=== PATIENT | female | born 2000 | race Hispanic/Latino ===

== ENCOUNTER 2019-04-02 16:07 | Inpatient (IN) | payer BC ==
[~2019-04-02 16:07] MED LIST: Bupivacaine/Epinephrine 0.25% 30 ML VIAL ONE
[2019-04-02 16:49] VITALS: BMI 40.6
[2019-04-02] MEDS ORDERED: Ondansetron PF 4 MG/2 ML Vial IVP PRN (16:59)
[2019-04-02] MEDS ORDERED: hydrALAZINE 20 MG/ML VIAL SLOW IVP PRN (16:59)
[2019-04-02] MEDS ORDERED: Acetaminophen 500 MG TAB PO PRN (16:59)
[2019-04-02] MEDS ORDERED: Docusate 100 MG CAP PO PRN (16:59)
[2019-04-02] MEDS ORDERED: Promethazine HCl 25 MG/ML VIAL IM PRN (16:59)
[2019-04-02] MEDS ORDERED: HYDROcodone/Acetaminophen 5/325 mg Tablet PO PRN ×2 (17:02)
[2019-04-02] MEDS ORDERED: Carboprost 250 MCG/ML AMP IM PRN (17:02)
[2019-04-02] MEDS ORDERED: Misoprostol 200 MCG TAB PR PRN (17:02)
[2019-04-02] MEDS ORDERED: NS / Oxytocin 40 units/1000ml 1,000 ML IV PRN (17:02)
[2019-04-02] MEDS ORDERED: Lidocaine 1% (PF) 30 ML VIAL SC PRN (17:02)
[2019-04-02] MEDS ORDERED: Diphenoxylate HCl/Atropine Tablet PO PRN ×2 (17:02)
[2019-04-02] MEDS ORDERED: Ibuprofen 800 MG TAB PO PRN (17:02)
--- NOTE | 2019-04-02 17:07 | PDOC.LDHP ---
Labor and Delivery H&P HPI: 18 y/o at 37 weeks with BMI of 40.5 (morbid obesity), admitted from clinic today with 4+ urine protein, and elevated BP to 146/98, with suspected new dx of preeclampsia. Patient also states she has not welt well at all today. Office BPP was 4 (-2 for tone, movement). Current gestational age (weeks): 37 Due date: 04/23/19 Grav: 1 Para: 0 Abnormal US findings: Yes (09/02 BPP) Current medications: pre- vitamins Previous surgical history: none Allergies/Adverse Reactions: Allergies Allergy/AdvReac Type Severity Reaction Status Date / Time No Known Allergies Allergy Unverified 04/02/19 16:43 Social history: none - Physical Exam Vital signs reviewed and normal: yes General: NAD, resting Heart: RRR Lungs: CTAB Abdomen: gravid Extremeties: no edema FHT: category 1 - Vaginal Exam cm dilated: 2 Effacement: 75% Station: -2 - Assessment L&D Assessment: medically indicated induction - Plan Plan: admit to L&D, cervical ripening
[2019-04-02] MEDS ORDERED: NS w/ Oxytocin 10 units 500 ML IV SCH (17:15)
[2019-04-02 17:31] LABS: Hemoglobin 11.4 g/dL (12.0-16.0); Mean Corpuscular Hemoglobin 27.8 pg (25.0-35.0); Mean Corpuscular Volume 81.7 fL (78.0-98.0); Mean Platelet Volume 8.8 fL (7.4-10.4); Platelet Count 255 thou/uL (130-400); RBC Distribution Width 13.3 % (11.5-14.5); Red Blood Cell (RBC) Count 4.12 mill/uL (4.00-5.20); White Blood Cell (WBC) Count 9.7 thou/uL (4.8-10.8)
[2019-04-02 18:02] LABS: ALT (SGPT) 16 U/L (8-55); AST (SGOT) 17 U/L (5-34); Albumin 3.4 g/dL (3.5-5.0); Alkaline Phosphatase 155 U/L (40-100); Anion Gap 16 mmol/L (10-20); BUN (Urea Nitrogen) 10 mg/dL (7.0-18.7); Bilirubin, Total 0.2 mg/dL (0.2-1.2); Calc. Creatinine Clearance 195 mL/min (70-130); Calcium 9.4 mg/dL (7.8-10.44); Carbon Dioxide 17 mmol/L (22-29); Chloride 109 mmol/L (98-107); Estimated GFR-MDRD Greater than 90; Globulin 3.1 g/dL (2.4-3.5); Glucose 124 mg/dL (70-105); Potassium 4.3 mmol/L (3.5-5.1); Protein, Total 6.5 g/dL (6.0-8.3); Sodium 138 mmol/L (136-145)
[2019-04-02 18:15] LABS: Syphilis Antibody Nonreactive (Nonreactive); Syphilis Antibody Index 0.04 S/CO (<1.00 Non-Reactive)
[2019-04-02 18:16] LABS: HBSAg Index 0.17 S/CO (0-0.99); Hep B Surf Ag Non-Reactive S/CO (NonReactive)
[2019-04-02] MEDS: Misoprostol 100 MCG TAB VAG SCH ×2 (18:59→23:07)
[2019-04-02] MEDS: Lactated Ringer's 1,000 ML IV SCH (19:00)
[2019-04-02] MEDS: Butorphanol Tartrate 1 MG/ML VIAL SLOW IVP PRN (23:22)
[2019-04-03] MEDS: Lactated Ringer's 1,000 ML IV SCH ×5 (00:55→20:36)
[2019-04-03] MEDS: Butorphanol Tartrate 1 MG/ML VIAL SLOW IVP PRN (01:01)
[2019-04-03] MEDS: Misoprostol 100 MCG TAB VAG SCH ×2 (01:05→04:10)
[2019-04-03] MEDS ORDERED: Fentanyl 4 mcg/Bup 0.1% Cadd 100 ML ONE (03:02)
[2019-04-03] MEDS ORDERED: diphenhydrAMINE 50 MG/ML VIAL IVP PRN ×2 (04:44→12:51)
[2019-04-03] MEDS ORDERED: Promethazine HCl 25 MG/ML VIAL IM PRN ×3 (04:44→12:51)
[2019-04-03] MEDS ORDERED: Naloxone HCl 0.4 mg/ml Vial IVP PRN ×4 (04:44→12:51)
[2019-04-03] MEDS ORDERED: Lactated Ringer's 500 ML IV PRN (04:44)
[2019-04-03] MEDS ORDERED: Acetaminophen 325 MG TAB PO PRN (04:44)
[2019-04-03] MEDS ORDERED: ePHEDrine/0.9% NaCl/PF SYRINGE 50 mg/10 ml SLOW IVP PRN (04:44)
[2019-04-03] MEDS ORDERED: Ondansetron PF 4 MG/2 ML Vial IVP PRN ×3 (04:44→12:51)
[2019-04-03] MEDS ORDERED: Communication Order-Pharmacy FS SCH ×2 (04:45→13:00)
[2019-04-03] MEDS ORDERED: Fentanyl 4 mcg/Bupivacaine 0.1% Cassette 100 ML EPIDURAL SCH (04:45)
[2019-04-03] MEDS: NS w/ Oxytocin 10 units 500 ML IV SCH ×2 (05:45→17:18)
[2019-04-03] MEDS ORDERED: Bicitra 30 ML UDCUP ONE (08:51)
[2019-04-03] MEDS ORDERED: MORPHINE 5 MG/10 ML PF VIAL ONE (08:56)
[2019-04-03] MEDS ORDERED: EPINEPHrine 1 MG/ML AMP ONE (08:57)
[2019-04-03] MEDS ORDERED: Lidocaine 2% MPF 10 ML AMP (For Epidural Use) ONE (08:57)
[2019-04-03] MEDS ORDERED: ePHEDrine/0.9% NaCl/PF SYRINGE 50 mg/10 ml ONE ×2 (08:57→09:53)
[2019-04-03] MEDS ORDERED: Oxytocin 10 UNITS/ML VIAL ONE ×3 (08:57→09:54)
[2019-04-03] MEDS ORDERED: Ondansetron PF 4 MG/2 ML Vial ONE (08:57)
[2019-04-03] MEDS ORDERED: Midazolam HCl 2 mg/2 ml Vial ONE (09:49)
[2019-04-03] MEDS ORDERED: Zolpidem Tartrate 5 MG TAB PO PRN (10:45)
[2019-04-03] MEDS ORDERED: Misoprostol 200 MCG TAB PR PRN (10:45)
[2019-04-03] MEDS ORDERED: Lanolin Ointment 7 GM TUBE TOP PRN (10:45)
[2019-04-03] MEDS ORDERED: hydrALAZINE 20 MG/ML VIAL SLOW IVP PRN (10:45)
[2019-04-03] MEDS ORDERED: Varicella virus, LIVE 0.5 ML VIAL SC ONE (10:45)
[2019-04-03] MEDS ORDERED: Adacel (T-DAP) 0.5 ML SYRINGE IM ONE (10:45)
[2019-04-03] MEDS ORDERED: diphenhydrAMINE 25 MG CAP PO PRN (10:45)
[2019-04-03] MEDS ORDERED: Bisacodyl 10 MG SUPP PR PRN (10:45)
[2019-04-03] MEDS ORDERED: Ketorolac Tromethamine 30 MG/ML VIAL ONE (12:12)
[2019-04-03] MEDS ORDERED: Ketorolac Tromethamine 30 MG/ML VIAL IVP PRN ×2 (12:15→12:51)
[2019-04-03] MEDS ORDERED: HYDROmorphone 2 MG/ML VIAL SLOW IVP PRN (12:51)
[2019-04-03] MEDS ORDERED: Ondansetron HCl/PF 4 MG/2 ML Vial IVP PRN (12:51)
[2019-04-03] MEDS ORDERED: Promethazine HCl 25 MG SUPP PR PRN (12:51)
[2019-04-03] MEDS ORDERED: L&D-Morphine 4 MG/ML VIAL SLOW IVP PRN (12:51)
[2019-04-03] MEDS ORDERED: Naloxone HCl 0.4 mg/ml Vial IV PRN (12:51)
[2019-04-03] MEDS ORDERED: Meperidine HCl/PF 25 MG/ML VIAL SLOW IVP PRN (12:51)
[2019-04-03] MEDS ORDERED: Ketorolac Tromethamine 30 MG/ML VIAL IVP SCH (13:00)
[2019-04-03] MEDS ORDERED: Ibuprofen 800 MG TAB PO SCH (14:00)
[2019-04-03] MEDS ORDERED: FLU VACC QS2019-20(6MOS UP)/PF 60 MCG/0.5 ML SYRINGE IM ONE (17:00)
[2019-04-03 18:18] LABS: #Lymphocytes 1.4 thou/uL (1.20-3.40); #Monocytes 0.7 thou/uL (0.11-0.59); %Basophils 0.2 % (0.0-1.0); %Eosinophils 0.3 % (0.0-10.0); %Lymphocytes 10.5 % (28.0-48.0); %Monocytes 5.2 % (0.0-4.0); %Neutrophils 83.7 % (31.0-61.0); Hemoglobin 10.2 g/dL (12.0-16.0); Mean Corpuscular HGB CONC 33.1 g/dL (32.0-36.0); Mean Corpuscular Hemoglobin 27.6 pg (25.0-35.0); Mean Corpuscular Volume 83.5 fL (78.0-98.0); Mean Platelet Volume 8.5 fL (7.4-10.4); Platelet Count 218 thou/uL (130-400); RBC Distribution Width 13.5 % (11.5-14.5); White Blood Cell (WBC) Count 13.2 thou/uL (4.8-10.8)
[2019-04-03 18:40] LABS: ALT (SGPT) 11 U/L (8-55); AST (SGOT) 18 U/L (5-34); Albumin 2.8 g/dL (3.5-5.0); Alkaline Phosphatase 122 U/L (40-100); Anion Gap 14 mmol/L (10-20); BUN (Urea Nitrogen) 10 mg/dL (7.0-18.7); Bilirubin, Total 0.2 mg/dL (0.2-1.2); Calc. Creatinine Clearance 195 mL/min (70-130); Calcium 8.7 mg/dL (7.8-10.44); Carbon Dioxide 19 mmol/L (22-29); Chloride 107 mmol/L (98-107); Estimated GFR-MDRD Greater than 90; Globulin 2.6 g/dL (2.4-3.5); Glucose 76 mg/dL (70-105); Potassium 3.7 mmol/L (3.5-5.1); Protein, Total 5.4 g/dL (6.0-8.3); Sodium 136 mmol/L (136-145)
[2019-04-04] MEDS ORDERED: HYDROcodone/Acetaminophen 5/325 mg Tablet PO PRN (01:00)
[2019-04-04] MEDS: Simethicone Chewable 80 MG TAB PO PRN ×3 (03:07→21:57)
[2019-04-04] MEDS: Docusate Calcium (SURFAK) 240 MG CAP PO SCH ×3 (03:23→21:58)
[2019-04-04 05:44] LABS: Hemoglobin 9.4 g/dL (12.0-16.0); Mean Corpuscular HGB CONC 33.8 g/dL (32.0-36.0); Mean Corpuscular Volume 82.9 fL (78.0-98.0); Mean Platelet Volume 8.1 fL (7.4-10.4); Platelet Count 190 thou/uL (130-400); RBC Distribution Width 13.6 % (11.5-14.5); Red Blood Cell (RBC) Count 3.35 mill/uL (4.00-5.20); White Blood Cell (WBC) Count 10.8 thou/uL (4.8-10.8)
[2019-04-04] MEDS: HYDROcodone/Acetaminophen 5/325 mg Tablet PO PRN ×4 (08:45→23:02)
[2019-04-04] MEDS: Ibuprofen 800 MG TAB PO SCH ×2 (15:46→21:58)
[2019-04-04] MEDS: Lactated Ringer's 1,000 ML IV SCH (15:54)
[2019-04-04] MEDS: NS w/ Oxytocin 10 units 500 ML IV SCH (15:54)
--- NOTE | 2019-04-04 15:59 | PDOC.PP ---
Post Progress Note Post Day #: 1 PO intake tolerated: yes Flatus: yes Ambulation: yes Vital Signs (12 hours) Temp Pulse Resp BP Pulse Ox 04/04/19 11:05 98.2 F 110 H 20 117/65 97 04/04/19 08:10 97 04/04/19 07:14 98.2 F 104 H 20 114/68 97 04/04/19 06:08 20 Weight Weight 215 lb - Physical Examination General: NAD Cardiovascular: no m/r/g, RRR Respiratory: clear to auscultation bilaterally, non-labored breathing Abdominal: + bowel sounds, lochia, no distention Extremities: negative homans (B) Skin: CS incision dry & intact, no rash Neurological: no gross focal deficits Psychiatric: A&Ox3, normal affect Result Diagrams: 04/04/19 05:28 04/03/19 18:12 Additional Labs: Post Labs Blood Type AB POSITIVE 04/02/19 18:43 Hep Bs Antigen Non-Reactive S/CO (NonReactive) 04/02/19 17:22
--- NOTE | 2019-04-04 21:43 | OP ---
DATE OF PROCEDURE: 04/03/2019 DELIVERY TIME: At 0944 hours, Central Standard Time. PREOPERATIVE DIAGNOSES: Intrauterine at 37 weeks and 1 day with a diagnosis of non-reassuring heart tones as well as proteinuria with suspected somewhat atypical mild preeclampsia. POSTOPERATIVE DIAGNOSES: Intrauterine at 37 weeks and 1 day with a diagnosis of non-reassuring heart tones as well as proteinuria with suspected somewhat atypical mild preeclampsia. PROCEDURE PERFORMED: Primary low-transverse section. FINDINGS: Viable male infant weighing 3318 g or 7 pounds 5 ounces with Apgars of 8 and 9. QUANTITATIVE BLOOD LOSS: 610 mL. COMPLICATIONS: None. DETAILS OF THE PROCEDURE: The patient was consented and taken back to the operating room where spinal anesthesia was found to be adequate. She was then prepped and draped in the normal sterile fashion. A timeout was performed by the entire operative team. The incision was then marked with a marking pen tested using sharp pickups. An incision was then made with a scalpel. The incision was carried through the adipose tissue down to the underlying rectus fascia using both sharp dissection as well as cautery. Once the fascia was identified, it was incised in the midline and then the fascial incision was carried through in both lateral directions using sharp as well as cautery dissection techniques. Next, the superior aspect of the rectus fascia was grasped with 2 Son clamps, which was tented up and the rectus muscles were dissected off using blunt dissection as well as cautery dissection. Similarly, the inferior aspect of the fascial incision was grasped with 2 Son clamps, tented up and the rectus muscles were dissected off bluntly as well as sharply. Next, the rectus muscles were in the midline and the peritoneum identified. The peritoneum was then carefully grasped with 2 hemostats and entered sharply. The peritoneal incision was extended superiorly and inferiorly and bladder blade was placed in the lower abdomen. At this point, the uterus was identified and the bladder flap was then developed using pickups with teeth as well as Metzenbaum scissors in both lateral directions. The bladder flap was then dissected downwards using the saddle stitch operator's finger as well as Metzenbaum scissors. The bladder blade was replaced. The lower uterine segment was then identified and entered sharply using a clean scalpel. The uterine incision was then dissected downwards until thin layer of muscle remained and this was entered bluntly using a hemostat to avoid any injury to the baby. The uterine incision was then stretched using two fingers in both lateral directions. An amniotomy was performed artificially using a hemostat and the baby was delivered using fundal pressure in a gentle fashion. Once out, the baby's mouth and nose were bulb suctioned, cord clamped and cut, and the baby was handed to waiting attendants. Next, the uterus was exteriorized, cleared of all clots and debris and the uterine incision was repaired with #1 Monocryl in a running locking fashion. A 2nd suture of the same type was used to obtain complete hemostasis at the uterine incision. The bladder flap was reapproximated using 3-0 Monocryl. Next, patient's left and right adnexa were inspected and appeared to be within normal limits. The posterior cul-de-sac was blotted dry and hemostasis assured. One more look at the uterine incision demonstrated hemostasis. Next, the uterus was replaced back within the abdomen. The peritoneum was reapproximated using 2-0 Monocryl without difficulty. The rectus muscles were then allowed to come back together and 0 chromic was used to aid in reapproximation of the muscle as necessary. The rectus fascia was then reapproximated in a running fashion using 0 Vicryl suture. The adipose tissue was then examined and appeared to be well approximated without any obvious separations. Finally, the skin was reapproximated with 3-0 Monocryl on a Will needle without difficulty and Dermabond adhesive was applied to the skin. Once the glue was dry, the drapes were removed and the patient was transferred to an ambulatory bed where she was taken to recovery awake and in stable condition. Sponge, lap, and needle counts were correct x3. Job ID: [id number]
[2019-04-05] MEDS: Misoprostol 100 MCG TAB VAG SCH (02:29)
[2019-04-05] MEDS: Lactated Ringer's 1,000 ML IV SCH ×2 (02:29→09:54)
[2019-04-05] MEDS: Ibuprofen 800 MG TAB PO SCH (06:17)
[2019-04-05] MEDS: HYDROcodone/Acetaminophen 5/325 mg Tablet PO PRN (09:56)
[2019-04-05] MEDS: Docusate Calcium (SURFAK) 240 MG CAP PO SCH (09:58)
[2019-04-05 11:55] VITALS: BP 142/88; TEMP 97.7
== END 2019-04-05 13:40 | disposition home or self-care (01) | DRG 788 ==
LOC: L&D/OP 16:07 → L&D 16:29 → 3SW 04-03 15:08
PROVIDERS: ADMIT Obstetrics & Gynecology; ATTEND Obstetrics & Gynecology
PROC: 10D00Z1 Extraction of Products of Conception, Low, Open Approach (ICD-10-PCS; principal; 2019-04-03)
DX: O14.04 Mild to moderate pre-eclampsia, complicating childbirth (principal); Z3A.37 37 weeks gestation of pregnancy; Z37.0 Single live birth; O76 Abnormality in fetal heart rate and rhythm complicating labor and delivery; O99.214 Obesity complicating childbirth; E66.9 Obesity, unspecified
CPT/HCPCS: 36415; 51702; 80053; 82570; 84156; 85025; 85027; 86780; 86850; 86900; 86901; 87340; J0171; J0595; J0690; J1885; J2001; J2250; J2274; J2405; J2590; Q0163